=== PATIENT | female | born 1955 | race Caucasian/White ===

== ENCOUNTER 2016-10-29 15:13 | Emergency (ER) | payer MEDICARE ==
[~2016-10-29] VITALS: Ht 165.1 cm; Wt 70.3 kg
[~2016-10-29 15:13] MED LIST: ALPR1TAB2 PO; ATOR20TA58 PO; BUPR100T6 PO; BUPR150T8 PO; HYDR-2679 PO; LACT1CAP29 PO; METO25TA4 PO; OMEP20TA PO; SERT50TA PO
[2016-10-29] MEDS ORDERED: HYDR-971 PO (16:12)
[2016-10-29] MEDS ORDERED: MUPI1OIN NS (16:12)
[2016-10-29] MEDS ORDERED: SULF1TAB24 PO (16:12)
--- NOTE | 2016-10-29 16:15 | PHYS DOC ---
General Chief Complaint: FACE PAIN Stated Complaint: NOSE,MOUTH,pain Time Seen by MD: 16:09 Source: patient Exam Limitations: no limitations Problems: History of Present Illness Initial Comments Pt is 61/F to ED c/o facial pain. Pt states for the past three days she's had increasing facial pain, described as burning/throbbing at nose both external and internal, as well as upper lip. Minimal cough, no nasal discharge, no fever/chills/nuchal rigidity. Saw her PCP yesterday dx URI, placed on augmentin/flonase. Pt says her symptoms much worse today, came to ED for analgesic relief. +smoker no h/o MRSA. Timing/Duration: other (3 days) Severity: moderate Location: nose, mouth, facial Prearrival Treatment: over the counter meds, prescription meds Modifying Factors: improves with other Associated Symptoms: sinus infection, other Allergies: Coded Allergies: nitroglycerin (Verified Allergy, Severe, 08/17/15) SEVERE HYPOTENSION levofloxacin (Verified Allergy, Intermediate, 08/17/15) Psych. s/s Influenza Virus Vaccines (Verified Allergy, Unknown, 07/09/16) Past Medical History Medical History: other (angina, anxiety, ) Surgical History: other (appy, hysterectomy, tonsillectomy) Social History Smoker: cigarettes Alcohol: none Drugs: none Constitutional: denies chills, denies fever, denies malaise, denies weakness Eyes: denies blindness, denies blurred vision, denies drainage, denies foreign body sensation Ears: denies dizziness, denies pain, denies tinnitus Nose: see HPI Mouth: see HPI Throat: denies pain, denies swelling, denies neck stiffness Respiratory: denies cough, denies shortness of breath, denies wheezing Cardiovascular: denies chest pain, denies palpitations, denies syncope Gastrointestinal: denies abdominal pain, denies diarrhea, denies nausea, denies vomiting Skin: see HPI Neurological: denies headache, denies numbness, denies paresthesia Physical Exam General Appearance: WD/WN, mild distress Eyes: bilateral eye EOMI, bilateral eye PERRL, bilateral eye normal inspection Ears: bilateral ear TM normal, bilateral ear auricle normal, bilateral ear canal normal Nose: other (mild erythema external and internal, mucus membranes irritated appear friable no bleeding/exudate) Mouth/Throat: other (erythema TTP upper lip, no intraoral lesions or pharyngeal swelling) Neck: supple, trachea midline, lymphadenopathy (R), lymphadenopathy (L) Cardiovascular/Respiratory: normal peripheral pulses, normal breath sounds, no respiratory distress 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 VSS, I feel pt stable for outpt treatment she is agreeable. Advised to stop smoking. Departure Time of Disposition: 16:13 Disposition: 01 HOME, SELF-CARE Diagnosis: Cellulitis (likely MRSA), sinusitis Condition: GOOD Patient Instructions: MRSA Infection, Infant, [id number] Additional Instructions: Discontinue flonase and augmentin. OTC nasal saline spray to keep membranes moist. Rx: bactrim ds, bactroban ointment, norco 5mg #20 Take meds with food. Follow up with your doctor next week for recheck. Return to ED with new or changing symptoms. ELISHA NGUYEN DO Oct 29, 2016 16:15
[2016-10-29 16:20] VITALS: BP 140/65
[2016-10-29] MEDS ORDERED: FLUCONAZOLE 100 MG TABLET. PO ONE (16:30)
== END 2016-10-29 16:35 | disposition home or self-care (01) ==
LOC: ER 15:13
DX: J34.0 Abscess, furuncle and carbuncle of nose (principal); J32.9 Chronic sinusitis, unspecified; K13.0 Diseases of lips; F17.210 Nicotine dependence, cigarettes, uncomplicated; Z88.1 Allergy status to other antibiotic agents; Z88.7 Allergy status to serum and vaccine; Z88.8 Allergy status to other drugs, medicaments and biological substances
CPT/HCPCS: 36415; 87641; 99283

== ENCOUNTER 2016-10-30 19:00 | Emergency (ER) | payer MEDICARE ==
[~2016-10-30 19:00] MED LIST changes: +HYDR-971 PO; +MUPI1OIN NS; +SULF1TAB24 PO
--- NOTE | 2016-10-30 19:04 | ED.ADGEN ---
Past History Past Medical History: Angina, Anxiety, Hypertension Past Surgical History: Appendectomy, Hysterectomy, Tonsillectomy Alcohol Use: None Drug Use: None Adult General Chief Complaint Chief Complaint "... I got this facial cellulitis and seemed to start him on nose.... They said it's MRSA.... I was on some antibiotics , but the just changed me to Bactrim twice a day... But I'm still having some swelling and itching... I'm supposed to follow-up with Dr. Thomas... HPI HPI Patient is a 61 year old female who presents with above hx and complaints of facial cellulitis. Patient has area around naris and upper lip that is erythemic and swollen. No adenopathy appreciated. No history immunosuppression. No history of specific ill contacts. No history of travel. Patient has only been on Bactrim approximately 24 hours. Patient states the itching and facial tenderness is very bothersome. Review of Systems Review of Systems Constitutional: Denies fever or chills [] Eyes: Denies change in visual acuity, redness, or eye pain [] HENT: Denies nasal congestion or sore throat [] complaints of facial rash and tenderness Respiratory: Denies cough or shortness of breath [] Cardiovascular: No additional information not addressed in HPI [] GI: Denies abdominal pain, nausea, vomiting, bloody stools or diarrhea [] : Denies dysuria or hematuria [] Musculoskeletal: Denies back pain or joint pain [] Integument: Complaints of facial rash Neurologic: Denies headache, focal weakness or sensory changes [] Endocrine: Denies polyuria or polydipsia [] Family History Family History Noncontributory Current Medications Current Medications Current Medications Medications (Trade) Dose Ordered Sig/Emiliano Start Time Stop Time Status Last Admin Dose Admin Ceftriaxone Sodium (Rocephin Im) 1 gm 1X ONCE 10/30/16 20:00 10/30/16 20:01 DC 10/30/16 19:50 1 GM Prednisone (Prednisone) 60 mg 1X ONCE 10/30/16 20:00 10/30/16 20:01 DC 10/30/16 19:50 60 MG Allergies Allergies Allergies Coded Allergies Type Severity Reaction Last Updated Verified nitroglycerin Allergy Severe 08/17/15 Yes levofloxacin Allergy Intermediate 08/17/15 Yes Influenza Virus Vaccines Allergy Unknown 07/09/16 Yes Physical Exam Physical Exam Constitutional: Moderate distress, non-toxic appearance. [] HENT: Normocephalic, atraumatic, bilateral external ears normal, oropharynx moist, no oral exudates, nose injected the anterior nares bilaterally. Upper lip cellulitis Eyes: PERRLA, EOMI, conjunctiva normal, no discharge. [] Neck: Normal range of motion, no tenderness, supple, no stridor. [] Cardiovascular:Heart rate regular rhythm, no murmur [] Lungs & Thorax: Bilateral breath sounds equal at apexes on auscultation [] Abdomen: Bowel sounds normal, soft, no tenderness, no masses, no pulsatile masses. Old surgical scars Skin: Warm, dry, findings of erythema, facial cellulitis as per history of present illness Back: No tenderness, no CVA tenderness. [] Extremities: No tenderness, no cyanosis, no clubbing, ROM intact, no edema. [] Neurologic: Alert and oriented X 3, normal motor function, normal sensory function, no focal deficits noted. [] Psychologic: Affect normal, judgement normal, mood normal. [] Current Patient Data Vital Signs Vital Signs Date Time Temp Pulse Resp B/P Pulse Ox O2 Delivery O2 Flow Rate FiO2 10/30/16 19:05 98.0 100 20 97 Room Air EKG EKG [] Radiology/Procedures Radiology/Procedures [] Course & Med Decision Making Course & Med Decision Making Pertinent Labs and Imaging studies reviewed. (See chart for details). Patient use cool packs as needed. Patient to continue antibiotic ointment. Patient continue to take Bactrim DS twice a day. Patient return if any increase in symptoms. Patient to take Tylenol and ibuprofen as needed for discomfort. For marked discomfort patient take Vicoprofen up 4 times a day. She advised if no improvement may need admission and IV antibiotics. Patient must follow-up with Dr. Thomas. Patient use Benadryl 25-50 mg 4 times as needed a day for itching complaints. [] Final Impression Final Impression 1. Facial cellulitis [] Problems: Dragon Disclaimer Dragon Disclaimer This electronic medical record was generated, in whole or in part, using a voice recognition dictation system. LEEANN CROWLEY MD Oct 30, 2016 19:04
[2016-10-30 19:05] VITALS: BP 152/79
[2016-10-30] MEDS ORDERED: CEFTRIAXONE IM 1 GM VIAL. IM ONE (20:00)
[2016-10-30] MEDS ORDERED: PREDNISONE 20 MG TABLET PO ONE (20:00)
== END 2016-10-30 20:05 | disposition home or self-care (01) ==
LOC: ER 19:00
DX: L03.211 Cellulitis of face (principal); I10 Essential (primary) hypertension; Z88.7 Allergy status to serum and vaccine
CPT/HCPCS: 96372; 99283; J0696; J7512

== ENCOUNTER → 2016-11-05 | Outpatient (CLI) | payer MEDICARE, OTHER ==
[2016-10-30 19:05] VITALS: BP 152/79
[~2016-11-05] MED LIST changes: -OMEP20TA PO; +OMEP20TA8 PO
--- NOTE | 2016-11-05 11:28 | RAD ---
CT face without contrast History: Sinusitis in a separate days, facial swelling and redness. Technique: Noncontrast CT of the face with attention to the sinuses was performed. Axial, sagittal, and coronal reconstructions were obtained. One or more of the following individualized dose reduction techniques were utilized for the study: Automated exposure control Adjustment of mA and/or kV according to patient's size Use of iterative reconstruction technique. Findings: There is no evidence of acute facial fracture. Bilateral orbits and orbital contents appear intact. Bilateral frontal sinuses are clear. There is opacification of several posterior right ethmoid air cells. Sphenoid sinus is clear. Mild-moderate circumferential left maxillary sinus mucosal thickening is seen. There is opacification of left ostiomeatal unit. Inferior right maxillary sinus demonstrates minimal mucosal thickening. Right ostiomeatal unit is patent. No mucoperiosteal reaction is identified. No soft tissue swelling is seen in the visualized face. Impression: 1. Left greater than right maxillary sinus disease. Opacification of several right ethmoid air cells.
== END | disposition home or self-care (01) ==
LOC: CT 10:44
PROVIDERS: ATTEND Family Medicine
DX: J32.0 Chronic maxillary sinusitis (principal); R22.0 Localized swelling, mass and lump, head; J06.9 Acute upper respiratory infection, unspecified; R50.81 Fever presenting with conditions classified elsewhere; G50.1 Atypical facial pain; J01.11 Acute recurrent frontal sinusitis
CPT/HCPCS: 70486

== ENCOUNTER → 2016-12-14 | Outpatient (CLI) | payer OTHER ==
--- NOTE | 2016-12-14 11:44 | RAD ---
DATE: 12/14/2016 EXAM: DIGITAL SCREEN BILAT W/CAD HISTORY: Screening COMPARISON: 13 months earlier This study was interpreted with the benefit of Computerized Aided Detection (CAD). FINDINGS: Breast Density: SCATTERED The breast parenchyma shows scattered fibroglandular densities. Breast parenchyma level B. There has been little change compared to the previous exam IMPRESSION: Benign finding BI-RADS CATEGORY: 2 BENIGN FINDING(S) RECOMMENDED FOLLOW-UP: 12M 12 MONTH FOLLOW-UP PQRS compliance statement: Patient information was entered into a reminder system with a target due date 12/14/2017 for the next mammogram. Mammography is a sensitive method for finding small breast cancers, but it does not detect them all and is not a substitute for careful clinical examination. A negative mammogram does not negate a clinically suspicious finding and should not result in delay in biopsying a clinically suspicious abnormality. "Our facility is accredited by the [employer] Mammography Program."
== END | disposition home or self-care (01) ==
LOC: MAMMO 10:20
PROVIDERS: ATTEND Obstetrics & Gynecology
DX: Z12.31 Encounter for screening mammogram for malignant neoplasm of breast (principal); R92.8 Other abnormal and inconclusive findings on diagnostic imaging of breast
CPT/HCPCS: G0202; 77067

== ENCOUNTER → 2017-04-07 | Day surgery (SDC) | payer OTHER ==
[~2017-04-07] MED LIST changes: +AMOX1TAB61 PO; +IV RINGERS SOLUTION,LACTATED 1,000 ML IV ONE; +PROPOFOL 20 ML IV ONE
== END | disposition home or self-care (01) ==
LOC: SURG 07:31
PROVIDERS: ATTEND Internal Medicine Gastroenterology
DX: Z12.11 Encounter for screening for malignant neoplasm of colon (principal); K57.30 Diverticulosis of large intestine without perforation or abscess without bleeding; I25.10 Atherosclerotic heart disease of native coronary artery without angina pectoris; K21.9 Gastro-esophageal reflux disease without esophagitis; F32.9 Major depressive disorder, single episode, unspecified; Z98.51 Tubal ligation status; Z90.710 Acquired absence of both cervix and uterus
CPT/HCPCS: 45378; J2704; J7120

== ENCOUNTER 2017-04-12 18:46 | Emergency (ER) | payer OTHER ==
[~2017-04-12] VITALS: Ht 165.1 cm; Wt 64.2 kg
[~2017-04-12 18:46] MED LIST changes: -AMOX1TAB61 PO; -IV RINGERS SOLUTION,LACTATED 1,000 ML IV ONE; -PROPOFOL 20 ML IV ONE
--- NOTE | 2017-04-12 18:48 | PHYS DOC ---
Past History Past Medical History: Depression, Hypertension, Other Past Surgical History: Cholecystectomy Alcohol Use: None Drug Use: None Adult General Chief Complaint Chief Complaint: left lower quadrant pain HPI HPI Patient is a 62 year old female who presents with for quadrant pain. She states been going on for last 2 days. Is worse when she tries to walk. She is having nothing else makes the pain better or worse. She's had a normal bowel movement without any diarrhea or constipation. She denies any dysuria. She has had a colonoscopy recently last week secondary to recent weight loss. Review of Systems Review of Systems Constitutional: Denies fever or chills [] Eyes: Denies change in visual acuity, redness, or eye pain [] HENT: Denies nasal congestion or sore throat [] Respiratory: Denies cough or shortness of breath [] Cardiovascular: No additional information not addressed in HPI [] GI: Positive for abdominal pain, Denies nausea, vomiting, bloody stools or diarrhea [] : Denies dysuria or hematuria [] Musculoskeletal: Denies back pain or joint pain [] Integument: Denies rash or skin lesions [] Neurologic: Denies headache, focal weakness or sensory changes [] Endocrine: Denies polyuria or polydipsia [] Allergies Allergies Allergies Coded Allergies Type Severity Reaction Last Updated Verified nitroglycerin Allergy Severe 08/17/15 Yes levofloxacin Allergy Intermediate 08/17/15 Yes I S O L A T I O N *CONTACT* Allergy Unknown 11/01/16 Yes Influenza Virus Vaccines Allergy Unknown 07/09/16 Yes Physical Exam Physical Exam Constitutional: Well developed, well nourished, no acute distress, non-toxic appearance. [] HENT: Normocephalic, atraumatic, bilateral external ears normal, oropharynx moist, no oral exudates, nose normal. [] Eyes: PERRLA, EOMI, conjunctiva normal, no discharge. [] Neck: Normal range of motion, no tenderness, supple, no stridor. [] Cardiovascular:Heart rate regular rhythm, no murmur [] Lungs & Thorax: Bilateral breath sounds clear to auscultation [] Abdomen: Bowel sounds hypoactive, high-pitched, soft, mild tender palpation left lower quadrant no rebound or guarding, no masses, no pulsatile masses. [] Skin: Warm, dry, no erythema, no rash. [] Back: No tenderness, no CVA tenderness. [] Extremities: No tenderness, no cyanosis, no clubbing, ROM intact, no edema. [] Neurologic: Alert and oriented X 3, normal motor function, normal sensory function, no focal deficits noted. [] Psychologic: Affect normal, judgement normal, mood normal. [] EKG EKG [] Radiology/Procedures Radiology/Procedures [address] [address] IMAGING REPORT Signed PATIENT: CORINA MAR ACCOUNT: [id number] : 1955 LOCATION: ER AGE: 62 SEX: F EXAM STATUS: REG ER ORD. PHYSICIAN: LIV CHINO MD REASON: rlq pain PROCEDURE: CT ABD PEL W/ORAL CONTRST ONLY CT abdomen and pelvis without contrast: Reason for examination: Right lower quadrant abdominal pain with nausea for 2 days. History of cholecystectomy, hysterectomy and possible appendectomy. Recent colonoscopy one week ago. Comparison is made to previous study dated 12/13/2012. Helical images were obtained through the abdomen and pelvis with no intravenous contrast but oral contrast was given. Reconstruction was performed in sagittal and coronal planes. Exposure: One or more of the following individualized dose reduction techniques were utilized for this examination: 1. Automated exposure control 2. Adjustment of the mA and/or kV according to patient size 3. Use of iterative reconstruction technique. The lung bases show some linear atelectasis posteriorly in the costophrenic angles bilaterally. The heart size is normal with no pericardial effusion. No abnormality seen at the liver, pancreas, adrenal glands or spleen. The gallbladder surgically absent. The kidneys show no renal masses, renal calculi, hydronephrosis or evidence of obstructive uropathy. The abdominal aorta shows some mild arteriosclerotic vascular calcification. The appendix is not identified and is apparently surgically absent. There is no evidence of diverticulosis there is however some minimal inflammatory changes adjacent to the colon near the junction of the descending and sigmoid colon. This could reflect focal diverticulitis. The small intestinal tract is not distended or thickened. No bowel obstruction is seen. No abnormality seen at the bladder or vaginal cuff. No free fluid or free air is seen in the abdomen or pelvis. There are some degenerative changes in the spine but no acute bony abnormalities are seen. IMPRESSION: Some focal inflammatory changes noted in the mesentery near the junction of the descending and sigmoid colon which may reflect diverticulitis. No other acute abnormality seen in the abdomen and pelvis. Electronically signed by: Venita Newman MD (04/13/2017 12:35 AM) [facility] DICTATED AND SIGNED BY: VENITA NEWMAN MD DATE: 04/13/17 0023 CC: JAKY HERNANDEZ MD; LIV CHINO MD ~ Impressions: Abdominal pain Course & Med Decision Making Course & Med Decision Making Pertinent Labs and Imaging studies reviewed. (See chart for details) CT scans concerning for possible diverticulitis. Patient feels comfortable enough is tolerating by mouth to be treated as an outpatient. She does have an allergy to levofloxacin and she states makes her "crazy" therefore will use Augmentin for the next 7 days. Patient's follow-up with GI specialist. Return precautions given she is agreeable plan of being discharged in stable condition at this time. Dragon Disclaimer Dragon Disclaimer This chart was dictated in whole or in part using Voice Recognition software in a busy, high-work load, and often noisy Emergency Department environment. It may contain unintended and wholly unrecognized errors or omissions. Departure Departure: Impression: Primary Impression: Diverticulitis Disposition: 01 HOME, SELF-CARE Condition: STABLE Referrals: JAKY HERNANDEZ MD (PCP) GLENDY SOLORIO MD Patient Instructions: Diverticulitis Additional Instructions: The CAT scan shows you have an inflammation of your large intestine on the left side rear pain is. They suspect you have diverticulitis. You're feeling well up to be discharged home and continue antibiotics as an outpatient. He will need to take Augmentin 1 tablet twice a day for the next 7 days. You will need to follow-up with a GI physician. If you do not have a GI doctor who just performed your colonoscopy you can call Dr. Lama who is at [facility]. Return ER for severe pain, uncontrolled nausea vomiting, or other concerns. Scripts Amoxicillin/Potassium Clav (AUGMENTIN 875-125 TABLET) 1 Each Tablet 1 TAB PO BID, #14 TAB Prov: LIV CHINO MD 04/13/17 Problem Qualifiers Primary Impression: Diverticulitis Diverticulitis site: large intestine Diverticulitis bleeding: without bleeding Diverticulitis complication: without perforation or abscess Qualified Codes: K57.32 - Diverticulitis of large intestine without perforation or abscess without bleeding LIV CHINO MD Apr 12, 2017 18:48
[2017-04-12] MEDS ORDERED: IV NORMAL SALINE 1,000ML 1,000 ML IV SCH (19:13)
[2017-04-12] MEDS ORDERED: MORPHINE SULFATE 2 MG/ML DISP.SYRIN. IV/SQ PRN (19:15)
[2017-04-12] MEDS ORDERED: ONDANSETRON PF 4 MG/2 ML VIAL. IV ONE (19:30)
--- NOTE | 2017-04-12 19:31 | EKG ---
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
[2017-04-12 20:06] LABS: BILIRUBIN,URINE NEG (NEG); CLARITY,URINE CLEAR; COLOR,URINE YELLOW; GLUCOSE,URINE NEG (NEG); NITRITE,URINE NEG (NEG); UROBILINOGEN,URINE 0.2 mg/dL (0.2 mg/dL)
[2017-04-12 20:08] LABS: BACTERIA,URINE FEW /HPF (0-FEW); SQUAMOUS EPITHELIAL CELL,UR MANY /LPF
[2017-04-12 20:11] LABS: YEAST,URINE PRESENT /HPF
[2017-04-12] MEDS ORDERED: IOHEXOL 240 MG/ML 50ML VIAL. PO ONE (21:00)
[2017-04-12] MEDS ORDERED: CONTRAST GIVEN MC PRN (21:00)
[2017-04-12] MEDS ORDERED: IOHEXOL 300 MG/ML 75 ML VIAL. IV ONE (21:00)
[2017-04-12] MEDS ORDERED: LIDOCAINE 1% Multi-Dose 20 ML VIAL. ONE (21:45)
[2017-04-12 22:59] LABS: BASO # 0.1 x10^3/uL (0.0-0.2); BASO % 1 % (0-3); EOS # 0.2 x10^3/uL (0.0-0.7); EOS % 3 % (0-3); HEMATOCRIT 40.4 % (36.0-47.0); LYMPH # 3.1 x10^3/uL (1.0-4.8); LYMPH % 41 % (24-48); MEAN CORPUSCULAR HEMOGLOBIN 32 pg (25-35); MEAN CORPUSCULAR HGB CONC 35 g/dL (31-37); MEAN CORPUSCULAR VOLUME 92 fL (79-100); MONO # 0.6 x10^3/uL (0.0-1.1); MONO % 8 % (0-9); NEUT # 3.5 x10^3uL (1.8-7.7); NEUT % 47 % (31-73); PLATELET COUNT 278 x10^3/uL (140-400); RED BLOOD COUNT 4.39 x10^6/uL (3.50-5.40); RED CELL DISTRIBUTION WIDTH 13.6 % (11.5-14.5); WHITE BLOOD COUNT 7.6 x10^3/uL (4.0-11.0)
[2017-04-12 23:18] LABS: ALBUMIN 3.4 g/dL (3.4-5.0); CALCIUM 9.1 mg/dL (8.5-10.1); CREATININE 0.7 mg/dL (0.6-1.0); DIRECT BILIRUBIN 0.1 mg/dL (0.0-0.2); GFR 84.2; POTASSIUM 3.6 mmol/L (3.5-5.1); TOTAL BILIRUBIN 0.2 mg/dL (0.2-1.0); TOTAL PROTEIN 6.6 g/dL (6.4-8.2)
[2017-04-13 00:08] VITALS: BP 121/66
--- NOTE | 2017-04-13 00:38 | RAD ---
CT abdomen and pelvis without contrast: Reason for examination: Right lower quadrant abdominal pain with nausea for 2 days. History of cholecystectomy, hysterectomy and possible appendectomy. Recent colonoscopy one week ago. Comparison is made to previous study dated 12/13/2012. Helical images were obtained through the abdomen and pelvis with no intravenous contrast but oral contrast was given. Reconstruction was performed in sagittal and coronal planes. Exposure: One or more of the following individualized dose reduction techniques were utilized for this examination: 1. Automated exposure control 2. Adjustment of the mA and/or kV according to patient size 3. Use of iterative reconstruction technique. The lung bases show some linear atelectasis posteriorly in the costophrenic angles bilaterally. The heart size is normal with no pericardial effusion. No abnormality seen at the liver, pancreas, adrenal glands or spleen. The gallbladder surgically absent. The kidneys show no renal masses, renal calculi, hydronephrosis or evidence of obstructive uropathy. The abdominal aorta shows some mild arteriosclerotic vascular calcification. The appendix is not identified and is apparently surgically absent. There is no evidence of diverticulosis there is however some minimal inflammatory changes adjacent to the colon near the junction of the descending and sigmoid colon. This could reflect focal diverticulitis. The small intestinal tract is not distended or thickened. No bowel obstruction is seen. No abnormality seen at the bladder or vaginal cuff. No free fluid or free air is seen in the abdomen or pelvis. There are some degenerative changes in the spine but no acute bony abnormalities are seen. IMPRESSION: Some focal inflammatory changes noted in the mesentery near the junction of the descending and sigmoid colon which may reflect diverticulitis. No other acute abnormality seen in the abdomen and pelvis. Electronically signed by: Venita Valdez MD (04/13/2017 12:35 AM) [facility]
[2017-04-13] MEDS ORDERED: AMOX1TAB61 PO (00:57)
[2017-04-13] MEDS ORDERED: AMOXICILLIN/K CLAV 875/125MG TABLET. PO ONE (01:30)
== END 2017-04-13 01:02 | disposition home or self-care (01) ==
LOC: ER 18:46
DX: K57.32 Diverticulitis of large intestine without perforation or abscess without bleeding (principal); I10 Essential (primary) hypertension; Z90.49 Acquired absence of other specified parts of digestive tract; Z88.7 Allergy status to serum and vaccine; Z88.1 Allergy status to other antibiotic agents; Z91.041 Radiographic dye allergy status; Z88.8 Allergy status to other drugs, medicaments and biological substances
CPT/HCPCS: 36415; 74176; 80048; 80076; 81001; 82553; 83690; 84484; 85025; 85610; 93005; 99285; Q9966; Q9967

== ENCOUNTER → 2017-05-02 | Outpatient (CLI) | payer OTHER ==
[2017-04-13 00:08] VITALS: BP 121/66
[~2017-05-02] MED LIST changes: +AMOX1TAB61 PO
--- NOTE | 2017-05-02 16:14 | RAD ---
INDICATION:RT UPPER ARM LUMP COMPARISON: None. FINDINGS: Focused ultrasound images were obtained of the upper right arm laterally at the region of concern for lump. The patient's subcutaneous fatty tissue as well as musculature is seen without a definite drainable fluid collection or well-defined mass at this time IMPRESSION: No definite drainable fluid collection or well-defined mass is seen at this time.
== END | disposition home or self-care (01) ==
LOC: US 14:33
PROVIDERS: ATTEND Nurse Practitioner Adult Health
DX: R22.31 Localized swelling, mass and lump, right upper limb (principal); K57.32 Diverticulitis of large intestine without perforation or abscess without bleeding
CPT/HCPCS: 76881

== ENCOUNTER → 2017-06-22 | Outpatient (CLI) | payer OTHER ==
--- NOTE | 2017-06-22 10:42 | RAD ---
CT of the chest without contrast, 06/22/2017: History: Smoking history, weight loss Noncontrast scans were obtained as requested. There is calcific plaquing of the thoracic aorta without evidence of aneurysm. No mediastinal adenopathy is evident. The heart size is normal. There are a few scattered linear parenchymal opacities, particularly in the lung bases, compatible with scars. There is mild pleural scarring over the pulmonary apices. There is a tiny 3 mm noncalcified subpleural nodule in the posterior aspect of the left lower lobe as seen on image 210 of series #5. There is a tiny calcified pulmonary granuloma in the posterior costophrenic angle on the right. No pulmonary consolidation is seen. There is no evidence of pleural fluid. There are mild scattered degenerative changes in the spine. IMPRESSION: 1. Mild bilateral pleural/parenchymal scarring. 2. Small right lower lobe calcified granuloma. 3. Tiny left lower lobe noncalcified pulmonary nodule which may be a granuloma or scar. A neoplastic etiology cannot be excluded. CT follow-up in 12 months is suggested. PQRS Compliance Statement: One or more of the following individualized dose reduction techniques were utilized for this examination: 1. Automated exposure control 2. Adjustment of the mA and/or kV according to patient size 3. Use of iterative reconstruction technique
== END | disposition home or self-care (01) ==
LOC: CT 09:35
PROVIDERS: ATTEND Nurse Practitioner Family
DX: J98.4 Other disorders of lung (principal); R91.8 Other nonspecific abnormal finding of lung field; R91.1 Solitary pulmonary nodule; Z87.891 Personal history of nicotine dependence; M47.894 Other spondylosis, thoracic region
CPT/HCPCS: 71250

== ENCOUNTER 2017-08-07 09:34 | Emergency (ER) | payer BC, OTHER ==
[~2017-08-07] VITALS: Ht 165.1 cm; Wt 64.2 kg
--- NOTE | 2017-08-07 11:00 | PHYS DOC ---
Past History Past Medical History: Depression, Hypertension, Kidney Stones, UTI, Other Past Surgical History: Cholecystectomy, Hysterectomy, Other Smoking: Cigarettes Alcohol Use: None Drug Use: None Adult General Chief Complaint Chief Complaint: FOREIGNBODY EAR HPI HPI 62-year-old female patient states he tried to clean her left ear 10 days ago and the cotton part of Q-tip stuck in her ear with decrease of hearing in her left ear. Patient states she tried to clean her right ear today and the cotton part of Q-tip remained in her ear with decrease of hearing. Patient denies other symptoms. Review of Systems Review of Systems Constitutional: Denies fever or chills [] Eyes: Denies change in visual acuity, redness, or eye pain [] HENT: Denies nasal congestion or sore throat , reports change of hearing Respiratory: Denies cough or shortness of breath [] Cardiovascular: No additional information not addressed in HPI [] GI: Denies abdominal pain, nausea, vomiting, bloody stools or diarrhea [] : Denies dysuria or hematuria [] Musculoskeletal: Denies back pain or joint pain [] Integument: Denies rash or skin lesions [] Neurologic: Denies headache, focal weakness or sensory changes [] Endocrine: Denies polyuria or polydipsia [] All other systems were reviewed and found to be within normal limits, except as documented in this note. Allergies Allergies Allergies Coded Allergies Type Severity Reaction Last Updated Verified nitroglycerin Allergy Severe 08/17/15 Yes levofloxacin Allergy Intermediate 08/17/15 Yes I S O L A T I O N *CONTACT* Allergy Unknown 11/01/16 Yes Influenza Virus Vaccines Allergy Unknown 07/09/16 Yes Physical Exam Physical Exam Constitutional: Well developed, well nourished, mild distress, non-toxic appearance, anxious. [] HENT: Normocephalic, atraumatic, bilateral external ears normal, no foreign body was seen, oropharynx moist, no oral exudates, nose normal. [] Eyes: PERRLA, EOMI, conjunctiva normal, no discharge. [] Neck: Normal range of motion, no tenderness, supple, no stridor. [] Cardiovascular:Heart rate regular rhythm, no murmur [] Lungs & Thorax: Bilateral breath sounds clear to auscultation [] Neurologic: Alert and oriented X 3, normal motor function, normal sensory function, no focal deficits noted. [] Current Patient Data Vital Signs Vital Signs Date Time Temp Pulse Resp B/P (MAP) Pulse Ox O2 Delivery O2 Flow Rate FiO2 08/07/17 09:34 98.1 78 98 Room Air EKG EKG [] Radiology/Procedures Radiology/Procedures [] Course & Med Decision Making Course & Med Decision Making Evaluation of patient in ER showed 62-year-old male patient with possible foreign body in bilateral ears. Patient had unremarkable physical exam. Patient felt better after ear irrigation by DYE AUTOMATION OPERATOR without finding foreign body. Psychiatric to use Q-tip in her ears and quit smoking. Dragon Disclaimer Dragon Disclaimer This electronic medical record was generated, in whole or in part, using a voice recognition dictation system. Departure Departure: Impression: Primary Impression: Ear ache Additional Impressions: Feared condition not demonstrated Tobacco abuse Tobacco abuse counseling Disposition: HOME, SELF-CARE (At 1059) Condition: IMPROVED Referrals: JAKY HERNANDEZ MD (PCP) Patient Instructions: Ear Foreign Body, Smoking Cessation Additional Instructions: Do not use Q-tips in your ear Follow-up with your primary care physician in 5-7 days Return to ER if not getting better Problem Qualifiers LOLA JOSHUA MD Aug 07, 2017 11:00
[2017-08-07 11:20] VITALS: BP 134/55
== END 2017-08-07 11:20 | disposition home or self-care (01) ==
LOC: ER 09:34
DX: H92.01 Otalgia, right ear (principal); Z71.1 Person with feared health complaint in whom no diagnosis is made; F17.210 Nicotine dependence, cigarettes, uncomplicated; I10 Essential (primary) hypertension; Z87.442 Personal history of urinary calculi; Z87.440 Personal history of urinary (tract) infections; Z71.6 Tobacco abuse counseling; Z88.8 Allergy status to other drugs, medicaments and biological substances; Z88.1 Allergy status to other antibiotic agents; Z88.7 Allergy status to serum and vaccine; Z91.041 Radiographic dye allergy status
CPT/HCPCS: 99282

== ENCOUNTER 2017-12-21 16:23 | Emergency (ER) | payer BC ==
[~2017-12-21] VITALS: Ht 167.6 cm; Wt 61.2 kg
[2017-12-21 16:23] VITALS: BP 125/58
--- NOTE | 2017-12-21 17:39 | ED.ADGEN ---
Past History Past Medical History: Depression, Hypertension, Kidney Stones, UTI, Other Past Surgical History: Cholecystectomy, Hysterectomy, Tubal ligation, Other Smoking: Cigarettes Alcohol Use: None Drug Use: None Adult General Chief Complaint Chief Complaint Abdominal distention, constipation HPI HPI Patient is a 62-year-old female with history of intussusception 9 years ago presents with abdominal distention, moderate cramping abdominal pain and nausea. Patient states she has been unable to have a bowel movement or passed gas for the past 5 days by taking numerous cathartics including magnesium citrate. No vomiting fever chills, sweats. No urinary frequency urgency. No other acute symptoms or complaints. Previous cholecystectomy,. [] Review of Systems Review of Systems Review symptoms as per history of present illness. All other review symptoms are negative. All other systems were reviewed and found to be within normal limits, except as documented in this note. Allergies Allergies Allergies Coded Allergies Type Severity Reaction Last Updated Verified nitroglycerin Allergy Severe 08/17/15 Yes levofloxacin Allergy Intermediate 08/17/15 Yes I S O L A T I O N *CONTACT* Allergy Unknown 11/01/16 Yes Influenza Virus Vaccines Allergy Unknown 07/09/16 Yes Physical Exam Physical Exam Constitutional: Well developed, well nourished, no acute distress sitting upright in bed.[] HENT: Normocephalic, atraumatic, bilateral external ears normal, oropharynx moist, no oral exudates, nose normal. [] Eyes: PERRLA, EOMI, conjunctiva normal, no discharge. [] Neck: Normal range of motion, no tenderness. [] Cardiovascular:Heart rate regular rhythm, no murmur [] Lungs & Thorax: Bilateral breath sounds clear to auscultation [] Abdomen: Bowel sounds normal, soft, moderate distention increased bowel sounds.. [] Skin: Warm, dry, no erythema, no rash. [] Back: No tenderness, no CVA tenderness. [] Extremities: No tenderness, no cyanosis, no clubbing, ROM intact, no edema. [] Neurologic: Alert and oriented X 3, normal motor function, normal sensory function, no focal deficits noted. [] Psychologic: Affect normal, judgement normal, mood normal. [] Current Patient Data Vital Signs Vital Signs Date Time Temp Pulse Resp B/P (MAP) Pulse Ox O2 Delivery O2 Flow Rate FiO2 6/13/18 16:23 98.4 63 18 96 Room Air EKG EKG [] Radiology/Procedures Radiology/Procedures [] Course & Med Decision Making Course & Med Decision Making Pertinent Labs and Imaging studies reviewed. (See chart for details) [Abdominal distention with history of intussusception. Concern for possible bowel obstruction, ileus versus unknown pathology. Work and imaging ordered. Care endorsed to oncoming ERP at 1800.] Final Impression Final Impression [] Dragon Disclaimer Dragon Disclaimer This electronic medical record was generated, in whole or in part, using a voice recognition dictation system. YONG ZAPATA DO Dec 21, 2017 17:39
[2017-12-21 18:16] LABS: BILIRUBIN,URINE NEG (NEG); CLARITY,URINE HAZY; COLOR,URINE YELLOW; GLUCOSE,URINE NEG (NEG)
[2017-12-21 18:17] LABS: BACTERIA,URINE FEW /HPF (0-FEW); NITRITE,URINE NEG (NEG); SQUAMOUS EPITHELIAL CELL,UR MOD /LPF; UROBILINOGEN,URINE 0.2 mg/dL (0.2 mg/dL)
[2017-12-21] MEDS ORDERED: ONDANSETRON ODT 4 MG TAB.RAPDIS ONE (19:07)
[2017-12-21 19:32] LABS: BASO # 0.1 x10^3/uL (0.0-0.2); BASO % 1 % (0-3); EOS # 0.2 x10^3/uL (0.0-0.7); EOS % 2 % (0-3); HEMATOCRIT 40.9 % (36.0-47.0); LYMPH # 2.8 x10^3/uL (1.0-4.8); LYMPH % 31 % (24-48); MEAN CORPUSCULAR HEMOGLOBIN 32 pg (25-35); MEAN CORPUSCULAR HGB CONC 34 g/dL (31-37); MEAN CORPUSCULAR VOLUME 92 fL (79-100); MONO # 0.6 x10^3/uL (0.0-1.1); MONO % 6 % (0-9); NEUT # 5.3 x10^3uL (1.8-7.7); NEUT % 59 % (31-73); PLATELET COUNT 334 x10^3/uL (140-400); RED BLOOD COUNT 4.44 x10^6/uL (3.50-5.40); RED CELL DISTRIBUTION WIDTH 13.7 % (11.5-14.5)
[2017-12-21 19:52] LABS: ALBUMIN 3.6 g/dL (3.4-5.0); ALBUMIN/GLOBULIN RATIO 1.1 (1.0-1.7); CALCIUM 8.8 mg/dL (8.5-10.1); CREATININE 0.8 mg/dL (0.6-1.0); GFR 72.2; POTASSIUM 4.4 mmol/L (3.5-5.1); TOTAL BILIRUBIN 0.3 mg/dL (0.2-1.0); TOTAL PROTEIN 6.8 g/dL (6.4-8.2)
--- NOTE | 2017-12-22 07:55 | RAD ---
Acute abdominal series with single view chest 12/21/2017 5:20 PM INDICATION: Constipation COMPARISON: CT chest June 22, 2017 TECHNIQUE: Frontal view of the chest is provided. Upright and supine views of abdomen are provided. FINDINGS: The cardiomediastinal silhouette is within normal limits. There are no pleural effusions. There is no pulmonary vascular congestion. There is no pneumothorax. The lungs are clear. There is mild pulmonary emphysema. 3 level anterior cervical discectomy and fusion hardware is partially profiled within the lower cervical spine. Cholecystectomy clips are identified in the right upper quadrant. There is no free intraperitoneal air. There are no dilated loops of small or large bowel. No suspicious calcifications are identified. Suture material is identified in the right lower pelvis. Phleboliths are identified in the pelvis. IMPRESSION: No acute cardiopulmonary process. Nonobstructive bowel gas pattern. Small amount of fecal contents noted throughout the colon. Electronically signed by: Patricia Brock MD (12/22/2017 7:52 AM) [facility]
== END 2017-12-21 20:28 | disposition home or self-care (01) ==
LOC: ER 16:23
DX: K56.7 Ileus, unspecified (principal); I10 Essential (primary) hypertension; F17.210 Nicotine dependence, cigarettes, uncomplicated; Z87.442 Personal history of urinary calculi; Z87.440 Personal history of urinary (tract) infections; Z90.49 Acquired absence of other specified parts of digestive tract; Z90.710 Acquired absence of both cervix and uterus; Z98.51 Tubal ligation status; Z88.7 Allergy status to serum and vaccine; Z88.8 Allergy status to other drugs, medicaments and biological substances; Z88.1 Allergy status to other antibiotic agents; Z91.041 Radiographic dye allergy status
CPT/HCPCS: 36415; 74022; 80053; 81001; 83690; 85025; 87086; 99285-25

== ENCOUNTER → 2018-09-12 | Outpatient (CLI) | payer MEDICARE, BC ==
[~2018-09-12] MED LIST changes: +BUPR150T11 PO; +HYDR-3165 PO; -HYDR-971 PO; +HYDR25TA PO; +OXYB5TAB7 PO
--- NOTE | 2018-09-12 17:33 | RAD ---
Examination: RENAL COMPLETE BILATERAL History: Microscopic hematuria Comparison/Correlation: None Findings: Bilateral renal ultrasound exam was performed. Right kidney measures 10.18 x 5.5 cm x 5.9 cm. Left kidney measures 9.9 cm x 5.2 cm x 5 cm. No hydronephrosis. Renal cortical echotexture and contours are normal. No hydronephrosis. Mild renal cortical thinning bilaterally noted. Bilateral ureteral jets identified within the urinary bladder. Prevoid volume is 442 cc and postvoid volume is 56 cc. No renal or urinary bladder calculi. Impression: Small to moderate postvoid urinary bladder residual. No hydronephrosis. No evidence of renal mass. Further evaluation with CT urography exam if able or MRI should be considered for more complete assessment. Electronically signed by: Jc Zavala MD (09/12/2018 5:30 PM) [id number]
== END | disposition home or self-care (01) ==
LOC: US 12:38
PROVIDERS: ATTEND Nurse Practitioner Family
DX: R39.81 Functional urinary incontinence (principal); R31.29 Other microscopic hematuria
CPT/HCPCS: 76770

== ENCOUNTER → 2018-09-19 | Outpatient (CLI) | payer MEDICARE, BC ==
--- NOTE | 2018-09-19 11:01 | RAD ---
CT HEAD WO CONTRAST dated 09/19/2018 9:41 AM. Comparison: None. Clinical Indication: Confusion, memory loss. Technical factors: Contiguous 5 mm axial images of the head were obtained from the skull base to the vertex. No contrast was administered. One or more of the following individualized dose reduction techniques were utilized for this examination: Automated exposure control, Adjustment of the mA and/or kV according to patient size, Use of iterative reconstruction technique. Findings: Ventricles and sulci are within normal limits for age. No evidence of ventricular shift or mass effect. Brain parenchyma is of normal attenuation. There is no evidence of hemorrhage or extra-axial collection. Minimal mucosal thickening bilateral ethmoid air cells. Visualized paranasal sinuses and mastoid air cells are otherwise clear. Impression: 1. No evidence of acute intracranial abnormality. 2. Mild sinus disease. Electronically signed by: Jung Healy MD (09/19/2018 10:58 AM) [id number]
== END | disposition home or self-care (01) ==
LOC: CT 09:03
PROVIDERS: ATTEND Psychiatry & Neurology Neurology
DX: J32.9 Chronic sinusitis, unspecified (principal)
CPT/HCPCS: 70450

== ENCOUNTER 2018-10-27 13:14 | Inpatient (IN) | payer MEDICARE, BC ==
[~2018-10-27] VITALS: Ht 167.6 cm; Wt 61.2 kg
[~2018-10-27 13:14] MED LIST changes: -BUPR150T11 PO; -HYDR25TA PO; -OXYB5TAB7 PO
[2018-10-27 13:44] VITALS: BP 135/60
[2018-10-27] MEDS ORDERED: OXYB5TAB7 PO (14:26)
[2018-10-27] MEDS ORDERED: BUPR150T11 PO (14:26)
[2018-10-27] MEDS ORDERED: HYDR25TA PO (14:26)
[2018-10-27] MEDS ORDERED: hydrOXYzine HCL 25 MG TABLET PO PRN ×2 (14:30)
[2018-10-27 14:35] LABS: BASO # 0.1 x10^3/uL (0.0-0.2); BASO % 1 % (0-3); EOS % 1 % (0-3); HEMATOCRIT 42.1 % (36.0-47.0); HEMOGLOBIN 14.4 g/dL (12.0-15.5); LYMPH # 1.7 x10^3/uL (1.0-4.8); LYMPH % 24 % (24-48); MEAN CORPUSCULAR HEMOGLOBIN 31 pg (25-35); MEAN CORPUSCULAR HGB CONC 34 g/dL (31-37); MEAN CORPUSCULAR VOLUME 90 fL (79-100); MONO # 0.5 x10^3/uL (0.0-1.1); MONO % 6 % (0-9); NEUT # 4.9 x10^3uL (1.8-7.7); NEUT % 68 % (31-73); PLATELET COUNT 319 x10^3/uL (140-400); RED BLOOD COUNT 4.68 x10^6/uL (3.50-5.40); RED CELL DISTRIBUTION WIDTH 13.6 % (11.5-14.5); WHITE BLOOD COUNT 7.2 x10^3/uL (4.0-11.0)
[2018-10-27 14:45] LABS: ALBUMIN 3.6 g/dL (3.4-5.0); ALBUMIN/GLOBULIN RATIO 1.1 (1.0-1.7); CALCIUM 9.1 mg/dL (8.5-10.1); CREATININE 0.8 mg/dL (0.6-1.0); POTASSIUM 3.8 mmol/L (3.5-5.1); TOTAL BILIRUBIN 0.2 mg/dL (0.2-1.0)
[2018-10-27 15:12] VITALS: BP 135/68
[2018-10-27 17:05] VITALS: BP 135/74
[2018-10-27] MEDS ORDERED: OXYBUTYNIN CHLORIDE 5 MG TABLET PO SCH (21:00)
[2018-10-27] MEDS ORDERED: METOPROLOL TART IMMED RELEASE 25 MG TABLET PO SCH (21:00)
[2018-10-28] MEDS ORDERED: buPROPion XL 150 MG TAB.ER.24H PO SCH (09:00)
[2018-10-28] MEDS ORDERED: BUPROPION HCL PO SCH (09:00)
[2018-10-28] MEDS ORDERED: SERTRALINE 50 MG TABLET. PO SCH (09:00)
--- NOTE | 2018-10-28 09:31 | EKG ---
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
== END 2018-10-27 18:17 | disposition home or self-care (01) | DRG 313 ==
LOC: ICU 13:14
PROVIDERS: ADMIT Family Medicine; ATTEND Family Medicine
DX: R07.89 Other chest pain (principal); I25.10 Atherosclerotic heart disease of native coronary artery without angina pectoris; F17.210 Nicotine dependence, cigarettes, uncomplicated; K21.9 Gastro-esophageal reflux disease without esophagitis; F32.9 Major depressive disorder, single episode, unspecified; F41.9 Anxiety disorder, unspecified; Z90.710 Acquired absence of both cervix and uterus; Z90.49 Acquired absence of other specified parts of digestive tract; Z89.429 Acquired absence of other toe(s), unspecified side; Z98.51 Tubal ligation status; Z88.8 Allergy status to other drugs, medicaments and biological substances; Z79.899 Other long term (current) drug therapy
CPT/HCPCS: 36415; 80053; 82550; 83735; 84484; 85025; 85379; 87641; 93005

== ENCOUNTER 2019-04-16 16:56 | Observation (INO) | payer MEDICARE, BC ==
[~2019-04-16] VITALS: Ht 167.6 cm; Wt 68.9 kg
[~2019-04-16 16:56] MED LIST changes: +BUPR150T11 PO; +HYDR25TA PO; +OXYB5TAB10 PO
[2019-04-16] MEDS ORDERED: METO25TA4 PO (17:39)
[2019-04-16 17:49] LABS: BASO # 0.1 x10^3/uL (0.0-0.2); BASO % 1 % (0-3); EOS # 0.2 x10^3/uL (0.0-0.7); EOS % 3 % (0-3); HEMOGLOBIN 14.5 g/dL (12.0-15.5); LYMPH # 2.9 x10^3/uL (1.0-4.8); LYMPH % 44 % (24-48); MEAN CORPUSCULAR HEMOGLOBIN 31 pg (25-35); MEAN CORPUSCULAR HGB CONC 34 g/dL (31-37); MEAN CORPUSCULAR VOLUME 92 fL (79-100); MONO # 0.5 x10^3/uL (0.0-1.1); MONO % 8 % (0-9); NEUT # 2.8 x10^3uL (1.8-7.7); NEUT % 44 % (31-73); PLATELET COUNT 330 x10^3/uL (140-400); RED BLOOD COUNT 4.66 x10^6/uL (3.50-5.40); RED CELL DISTRIBUTION WIDTH 13.1 % (11.5-14.5); WHITE BLOOD COUNT 6.5 x10^3/uL (4.0-11.0)
[2019-04-16 17:53] VITALS: BP 133/59
--- NOTE | 2019-04-16 17:56 | EKG ---
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
[2019-04-16 18:08] LABS: ALBUMIN 3.7 g/dL (3.4-5.0); ALBUMIN/GLOBULIN RATIO 1.1 (1.0-1.7); CALCIUM 9.1 mg/dL (8.5-10.1); CREATININE 0.9 mg/dL (0.6-1.0); GFR 62.6; POTASSIUM 3.9 mmol/L (3.5-5.1); TOTAL BILIRUBIN 0.4 mg/dL (0.2-1.0); TOTAL PROTEIN 7.2 g/dL (6.4-8.2)
[2019-04-16 19:00] VITALS: BP 110/49
[2019-04-16 20:00] VITALS: BP 114/47
[2019-04-16] MEDS: OXYBUTYNIN CHLORIDE 5 MG TABLET PO SCH (20:56)
[2019-04-16] MEDS: METOPROLOL TART IMMED RELEASE 25 MG TABLET PO SCH (20:57)
[2019-04-16 21:00] VITALS: BP 114/44
[2019-04-16 22:00] VITALS: BP 109/49
[2019-04-16 22:32] LABS: CLARITY,URINE CLEAR; COLOR,URINE STRAW
[2019-04-16 22:33] LABS: BACTERIA,URINE FEW /HPF (0-FEW); BILIRUBIN,URINE NEG (NEG); GLUCOSE,URINE NEG (NEG); NITRITE,URINE NEG (NEG); SQUAMOUS EPITHELIAL CELL,UR FEW /LPF; UROBILINOGEN,URINE 0.2 mg/dL (0.2 mg/dL); WBC,URINE OCC /HPF (0-4)
[2019-04-16 23:00] VITALS: BP 109/49
[2019-04-17] VITALS (10 sets, daily range): BP systolic 98–125; BP diastolic 42–72
[2019-04-17 06:29] LABS: ALBUMIN 3.5 g/dL (3.4-5.0); ALBUMIN/GLOBULIN RATIO 1.1 (1.0-1.7); CREATININE 0.8 mg/dL (0.6-1.0); GFR 71.8; MAGNESIUM 2.1 mg/dL (1.8-2.4); POTASSIUM 4.1 mmol/L (3.5-5.1); TOTAL BILIRUBIN 0.5 mg/dL (0.2-1.0); TOTAL PROTEIN 6.7 g/dL (6.4-8.2)
--- NOTE | 2019-04-17 07:53 | RAD ---
Chest radiograph 04/17/2019 5:00 AM INDICATION: Chest pain COMPARISON: CT chest 06/22/2017 TECHNIQUE: Frontal and lateral views of the chest are provided. FINDINGS: The cardiomediastinal silhouette is within normal limits. There are no pleural effusions. There is no pulmonary vascular congestion. There is no pneumothorax. Patchy opacity is noted at the left lung base which may represent subsegmental atelectasis versus developing infiltrate. No significant osseous abnormality is identified. IMPRESSION: Patchy opacity at the left lung base may represent subsegmental atelectasis versus developing infiltrate. Electronically signed by: Patricia Brock MD (04/17/2019 7:50 AM) [facility]
[2019-04-17] MEDS: METOPROLOL TART IMMED RELEASE 25 MG TABLET PO SCH (08:02)
[2019-04-17] MEDS: OXYBUTYNIN CHLORIDE 5 MG TABLET PO SCH (08:02)
[2019-04-17] MEDS ORDERED: SERTRALINE 50 MG TABLET. PO SCH (09:00)
[2019-04-17] MEDS ORDERED: buPROPion SR 150 MG TABLET.SA PO SCH (09:00)
--- NOTE | 2019-04-17 19:28 | DS ---
DATE OF DISCHARGE: 04/17/2019 HOSPITAL COURSE: A 64-year-old female admitted with substernal chest pain. The patient notes it was radiating to her back. Otherwise, she was mildly short of breath. The patient was admitted to the hospital for further evaluation and treatment. Her workup was basically unremarkable. Blood pressure was that of 110/70, respiratory rate 18, pulse 64, afebrile. The patient's cardiac enzymes repeat were all negative. Sodium and potassium 140 and 4.1, blood sugar was stable, BUN and creatinine 8 and 0.8, albumin was unremarkable. CBC was perfectly normal. Electrocardiogram was unremarkable. The patient was admitted for further evaluation, but cleared. She will follow up with her commission associate as an outpatient and make further evaluation. IMPRESSION: Chest pain, possible angina. Continue to monitor the patient as an outpatient and make further evaluation with her commission associate. JAKY HERNANDEZ MD DR: ATIYA/cristiana JOB#: [id number] / [id number]
== END 2019-04-17 09:38 | disposition home or self-care (01) ==
LOC: INTOOBSV 16:56 → ICU 16:56
PROVIDERS: ADMIT Family Medicine; ATTEND Family Medicine
DX: R07.2 Precordial pain (principal); F17.210 Nicotine dependence, cigarettes, uncomplicated; I25.10 Atherosclerotic heart disease of native coronary artery without angina pectoris; F32.9 Major depressive disorder, single episode, unspecified; K21.9 Gastro-esophageal reflux disease without esophagitis; F41.9 Anxiety disorder, unspecified; Z90.710 Acquired absence of both cervix and uterus; C76.40 Malignant neoplasm of unspecified upper limb; Z89.429 Acquired absence of other toe(s), unspecified side; Z98.890 Other specified postprocedural states; R11.0 Nausea; M54.89 Other dorsalgia; R42 Dizziness and giddiness; Z72.0 Tobacco use
CPT/HCPCS: 36415; 71046; 80053; 80061; 81001; 82550; 83735; 83880; 84484; 85025; 85379; 93005; G0378; G0379

== ENCOUNTER → 2019-10-05 | Outpatient (CLI) | payer MEDICARE, BC ==
[2019-04-17 08:02] VITALS: BP 111/72
--- NOTE | 2019-10-05 13:14 | RAD ---
Examination: SCAPULA LEFT History: Left posterior scapular pain. Comparison/Correlation: None Findings: 2 view image of the left scapula was obtained. Joint spaces are unremarkable. No fracture or bone destruction. Soft tissues are unremarkable. Impression: No acute process. Electronically signed by: Jc Zavala MD (10/05/2019 1:11 PM) [id number]
== END ==
LOC: DXRAD 12:32
PROVIDERS: ATTEND Family Medicine
DX: M54.9 Dorsalgia, unspecified (principal)
CPT/HCPCS: 73010

== ENCOUNTER → 2020-03-21 | Outpatient (CLI) | payer MEDICARE, BC ==
[2019-04-17 08:02] VITALS: BP 111/72
== END | disposition home or self-care (01) ==
LOC: LAB 08:35
PROVIDERS: ATTEND Registered Nurse
DX: Z20.828 Contact with and (suspected) exposure to other viral communicable diseases (principal)
CPT/HCPCS: U0003-CS

== ENCOUNTER → 2020-03-25 | Day surgery (SDC) | payer MEDICARE, BC ==
[~2020-03-25] MED LIST changes: +IPRATRPIUM/ALBUTEROL 0.5/2.5MG 3 ML NEBU. NEB PRN; +IV RINGERS SOLUTION,LACTATED 1,000 ML IV SCH; +MIDAZOLAM HCL PF 2 MG/2 ML VIAL. IV ONE; +ONDANSETRON PF 4 MG/2 ML VIAL. IV PRN; +PROPOFOL 10,000 MCG/ML (20ML) VIAL IV ONE
[2020-03-25 11:28] VITALS: BP 109/78
--- NOTE | 2020-03-25 11:48 | NUR ---
Upon transport to car IV site began to ooze, patient placed tissue at site and applied pressure. I recommended we come back in to get new bandage and make sure the bleeding stopped. Patient insisted upon leaving. Was holding wrist higher than heart and applying pressure to IV site.
--- NOTE | 2020-03-26 16:07 | PATHOLOGY ---
[facility] Accession Number: [id number] . 01 Material submitted: . stomach - GASTRITIS BX . 01 Clinical history: . R/O H PYLORI . 02 Diagnosis: Gastric biopsies: - Congestion and slight chronic inflammation. ([facility] 03/26/2020) [facility] 03/26/2020 0913 Local . 02 Comment: Sections of the gastric biopsy reveal segments of gastric antral mucosa showing congestion and slight chronic inflammation with scattered admixed eosinophils. A properly controlled immunoperoxidase for Helicobacter is negative for Helicobacter organisms. ([facility] 03/26/2020) . Special stain performed: Immunoperoxidase for Helicobacter on A1. . 02 Electronically signed: . Rafa Kendall MD, Pathologist NPI- [id number] . 01 Gross description: . The specimen is received in formalin, labeled "Mariah Mcghee, gastric biopsy, R/O H. pylori". Received are three segments of pale olvera soft tissue ranging in size from 0.2 to 0.3 cm in maximum dimensions. The specimen is submitted entirely in cassette A1. ([facility]; 03/25/2020) [facility] 03/25/2020 1818 Local . 02 Pathologist provided ICD-10: K29.50 . 02 CPT . 869917, [id number] Specimen Comment: A courtesy copy of this report has been sent to [phone] Specimen Comment: [id number] Specimen Comment: Report sent to / DR HERNANDEZ Performed at: 01 [facility] [address], [place], [place] [id number] MD Magno Colunga MD Phone: [phone] Performed at: 02 [facility] [address] [place], [place] [id number] MD Rafa Kendall MD Phone: [phone]
== END | disposition home or self-care (01) ==
LOC: SURG 08:09
PROVIDERS: ATTEND Internal Medicine Gastroenterology
DX: R13.10 Dysphagia, unspecified (principal); K29.50 Unspecified chronic gastritis without bleeding; K22.2 Esophageal obstruction; I10 Essential (primary) hypertension; M19.90 Unspecified osteoarthritis, unspecified site; F17.210 Nicotine dependence, cigarettes, uncomplicated; F32.9 Major depressive disorder, single episode, unspecified; Z90.49 Acquired absence of other specified parts of digestive tract; Z98.890 Other specified postprocedural states; Z79.899 Other long term (current) drug therapy; Z86.711 Personal history of pulmonary embolism; Z87.11 Personal history of peptic ulcer disease; Z88.6 Allergy status to analgesic agent; Z88.8 Allergy status to other drugs, medicaments and biological substances; Z90.710 Acquired absence of both cervix and uterus; Z91.041 Radiographic dye allergy status
CPT/HCPCS: 43239; 43450; 88305; 88342; J2704; J7120

== ENCOUNTER → 2020-08-11 | Outpatient (CLI) | payer MEDICARE, BC ==
[2020-03-25 11:28] VITALS: BP 109/78
[~2020-08-11] MED LIST changes: -IPRATRPIUM/ALBUTEROL 0.5/2.5MG 3 ML NEBU. NEB PRN; -IV RINGERS SOLUTION,LACTATED 1,000 ML IV SCH; -MIDAZOLAM HCL PF 2 MG/2 ML VIAL. IV ONE; -ONDANSETRON PF 4 MG/2 ML VIAL. IV PRN; -PROPOFOL 10,000 MCG/ML (20ML) VIAL IV ONE
--- NOTE | 2020-08-12 09:26 | RAD ---
PQRS Compliance Statement: One or more of the following individualized dose reduction techniques were utilized for this examinat ion: 1. Automated exposure control 2. Adjustment of the mA and/or kV according to patient size 3. Use of iterative reconstruction technique CT THORAX WO Clinical Indication: Reason: SHORTNESS OF BREATH, ACUTE BRONCHOSPASM Comparison: CT chest without contrast, June 22, 2017. TECHNIQUE: Helical CT imaging of the chest is performed without IV contrast. Findings: The thyroid is symmetric. There are subcentimeter mediastinal lymph nodes. There is no adenopathy. Li mited evaluation of the judith without IV contrast. The great vessels are normal caliber. Cardiac size is normal, no pericardial effusion. There is no pleural effusion. The central airways are patent. There is discoid atelectasis or linear scarring in the bilateral lung bases. Lungs are otherwise clear. Cholecystectomy. No acute bone abnormality. Cervical spine fusion hardware. There is exaggerated thoracic kyphosis. IMPRESSION: Discoid atelectasis or linear scarring in the bilateral lung bases. Electronically signed by: Fitz Rousseau MD (08/12/2020 9:23 AM) [id number]
== END ==
LOC: CT 10:20
PROVIDERS: ATTEND Family Medicine
DX: J98.01 Acute bronchospasm (principal); M40.294 Other kyphosis, thoracic region; M43.22 Fusion of spine, cervical region; Z90.49 Acquired absence of other specified parts of digestive tract
CPT/HCPCS: 71250

== ENCOUNTER → 2021-05-06 | Outpatient (CLI) | payer MEDICARE, BC ==
[2020-03-25 11:28] VITALS: BP 109/78
[~2021-05-06] MED LIST changes: +CYCL10TA19 PO; -LACT1CAP29 PO; +LACT1CAP37 PO
[2021-05-06 11:19] LABS: BASO # 0.1 x10^3/uL (0.0-0.2); BASO % 1 % (0-3); EOS # 0.2 x10^3/uL (0.0-0.7); EOS % 2 % (0-3); HEMATOCRIT 44.8 % (36.0-47.0); HEMOGLOBIN 14.5 g/dL (12.0-15.5); LYMPH # 2.2 x10^3/uL (1.0-4.8); LYMPH % 19 % (24-48); MEAN CORPUSCULAR HEMOGLOBIN 31 pg (25-35); MEAN CORPUSCULAR HGB CONC 32 g/dL (31-37); MEAN CORPUSCULAR VOLUME 95 fL (79-100); MONO # 0.7 x10^3/uL (0.0-1.1); MONO % 6 % (0-9); NEUT # 8.3 x10^3uL (1.8-7.7); NEUT % 72 % (31-73); PLATELET COUNT 333 x10^3/uL (140-400); RED BLOOD COUNT 4.72 x10^6/uL (3.50-5.40); RED CELL DISTRIBUTION WIDTH 13.2 % (11.5-14.5); WHITE BLOOD COUNT 11.6 x10^3/uL (4.0-11.0)
[2021-05-06 11:53] LABS: ALBUMIN 3.7 g/dL (3.4-5.0); CALCIUM 9.7 mg/dL (8.5-10.1); CREATININE 0.9 mg/dL (0.6-1.0); GFR 62.3; POTASSIUM 4.5 mmol/L (3.5-5.1); TOTAL BILIRUBIN 0.2 mg/dL (0.2-1.0); TOTAL PROTEIN 7.5 g/dL (6.4-8.2)
== END ==
LOC: LAB 10:05
PROVIDERS: ATTEND Nurse Practitioner Adult Health
DX: M94.0 Chondrocostal junction syndrome [Tietze] (principal); R07.9 Chest pain, unspecified
CPT/HCPCS: 36415; 80053; 82553; 84484; 85025; 85379

== ENCOUNTER → 2021-05-08 | Outpatient (CLI) | payer MEDICARE, BC ==
[2020-03-25 11:28] VITALS: BP 109/78
--- NOTE | 2021-05-08 14:39 | RAD ---
EXAM: Chest CT without intravenous contrast. HISTORY: Reflux disease. Cough. TECHNIQUE: Computed tomographic images of the chest were obtained without contrast. Multiplanar refor matting was performed. *One or more of the following individualized dose reduction techniques were utilized for this examina tion: 1. Automated exposure control. 2. Adjustment of the mA and/or kV according to patient size. 3. Use of iterative reconstruction technique. COMPARISON: 08/11/2020. FINDINGS: The heart is normal in size. The aorta is normal in caliber. There is no mediastinal or hil ar lymphadenopathy. There is fatty stranding within the midline chest wall anterior to the sternum, n ew compared to the prior study. There is slight overlying skin thickening extending to the left of mi dline to involve the medial left breast. The underlying sternum is unremarkable. There is no pneumothorax or pleural effusion. There is a 2 mm nodule within the posterior left lower lobe. There is stable linear atelectasis or scarring within the right lower lobe and bilateral wad lubricator ior dependent and basilar atelectasis. There is stable tiny clustered faint nodular opacities measuri ng up to 3 mm within the lateral right middle lobe, likely postinfectious or postinflammatory in etio logy. There is no acute or suspicious finding involving the upper abdomen. There is degenerative change inv olving the thoracic spine. There is cervical spinal fusion instrumentation. IMPRESSION: 1. Stable bilateral lower lobe atelectasis and possible superimposed pleural parenchymal scarring. 2. Stable 2 mm nodule within the left lower lobe, likely benign based on size. There are also stable tiny groundglass nodular opacities clustered within the lateral right middle lobe measuring up to 3 m m, likely postinfectious or postinflammatory in etiology. 3. Soft tissue stranding within the midline chest wall subcutaneous fat anterior to the sternum and o verlying skin thickening extending to the medial left breast. Correlate for possible cellulitis. If t here is a history of recent chest wall trauma, this may be due to a soft tissue contusion. No chest w all mass or fluid collection is seen and there is no underlying sternal lesion. Electronically signed by: Shahla Joseph MD (05/08/2021 2:36 PM) [id number]
== END ==
LOC: CT 11:26
PROVIDERS: ATTEND Nurse Practitioner Adult Health
DX: K21.9 Gastro-esophageal reflux disease without esophagitis (principal); R91.1 Solitary pulmonary nodule; J98.11 Atelectasis
CPT/HCPCS: 71250

== ENCOUNTER 2021-05-10 09:10 | Emergency (ER) | payer MEDICARE, BC ==
[~2021-05-10] VITALS: Ht 167.6 cm; Wt 64.2 kg
[~2021-05-10 09:10] MED LIST changes: -CYCL10TA19 PO
--- NOTE | 2021-05-10 10:23 | EKG ---
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
[2021-05-10] MEDS ORDERED: CYCLOBENZAPRINE 10 MG TABLET. PO ONE (10:30)
[2021-05-10] MEDS ORDERED: ASPIRIN 325 MG TABLET PO ONE (10:30)
--- NOTE | 2021-05-10 10:35 | PHYS DOC ---
Past History Past Medical History: Depression, Hypertension, Kidney Stones, UTI, Other (SANDIE BROWNING RING BARKER OPERATOR) Past Surgical History: Cholecystectomy, Hysterectomy, Tubal ligation, Other (SANDIE BROWNING APRN) Smoking: Cigarettes Alcohol Use: None Drug Use: None (SANDIE BROWNING APRN) Adult General Chief Complaint Chief Complaint: CHEST PAIN HPI HPI Patient is a 66-year-old female patient with history of depression, hypertension, high cholesterol, who presents to the ED today complaining of mild intermittent "pulling" left-sided chest pain, symptoms began a week ago after she bent down to pick a library book from the floor. Patient states the pain is worse on pushing on her left chest as well as certain movements or lifting heavy items. Patient denies anything specifically relieving the pain. She states she was seen by the PCP on Tuesday last week for the same pain, she states they did a chest x-ray, EKG and labs which were negative. She states they did a CT of her chest on last week but she does not have the results. She states she would like something to help with the pain. (SANDIE BROWNING RING BARKER OPERATOR) Review of Systems Review of Systems Constitutional: Denies fever or chills [] Eyes: Denies change in visual acuity, redness, or eye pain [] HENT: Denies nasal congestion or sore throat [] Respiratory: Denies cough or shortness of breath [] Cardiovascular: Reports left-sided chest pain GI: Denies abdominal pain, nausea, vomiting, bloody stools or diarrhea [] : Denies dysuria or hematuria [] Musculoskeletal: Denies back pain or joint pain [] Integument: Denies rash or skin lesions [] Neurologic: Denies headache, focal weakness or sensory changes [] All other systems were reviewed and found to be within normal limits, except as documented in this note. (SANDIE BROWNING RING BARKER OPERATOR) Current Medications Current Medications Current Medications Medications (Trade) Dose Ordered Sig/Emiliano Start Time Stop Time Status Last Admin Dose Admin Aspirin (Madina Aspirin) 325 mg 1X ONCE 05/10/21 10:30 05/10/21 10:31 Cyclobenzaprine HCl (Flexeril) 10 mg 1X ONCE 05/10/21 10:30 05/10/21 10:31 (SANDIE BROWNING RING BARKER OPERATOR) Allergies Allergies Allergies Coded Allergies Type Severity Reaction Last Updated Verified nitroglycerin Allergy Severe 08/17/15 Yes levofloxacin Allergy Intermediate 08/17/15 Yes I S O L A T I O N *CONTACT* Allergy Unknown 11/01/16 Yes Influenza Virus Vaccines Allergy Unknown 07/09/16 Yes codeine Allergy Unknown 03/19/20 Yes (SANDIE BROWNING Samuel RING BARKER OPERATOR) Physical Exam Physical Exam Constitutional: Well developed, well nourished, no acute distress, non-toxic appearance. [] HENT: Normocephalic, atraumatic, bilateral external ears normal, oropharynx mo ist, no oral exudates, nose normal. [] Eyes: PERRLA, EOMI, conjunctiva normal, no discharge. [] Neck: Normal range of motion, no tenderness, supple, no stridor. [] Cardiovascular:Heart rate regular rhythm, reproducible left-sided chest pain on palpation of the left mid chest. Lungs & Thorax: Bilateral breath sounds clear to auscultation [] Abdomen: Bowel sounds normal, soft, no tenderness, no masses, no pulsatile masses. [] Skin: Warm, dry, no erythema, no rash. [] Back: No tenderness, no CVA tenderness. [] Extremities: No tenderness, no cyanosis, no clubbing, ROM intact, no edema. [] Neurologic: Alert and oriented X 3, normal motor function, normal sensory function, no focal deficits noted. [] Psychologic: Affect normal, judgement normal, mood normal. [] (SANDIE BROWNING RING BARKER OPERATOR) EKG EKG [address] Reyes sinus rhythm heart rate 72 no STEMI (SANDIE BROWNING RING BARKER OPERATOR) Radiology/Procedures Radiology/Procedures [] (ILSAKARMENSANDIE Samuel RING BARKER OPERATOR) Heart Score C/O Chest Pain: Yes HEART Score for Chest Pain: HEART Score for Chest Pain Response (Comments) Value History Slighlty/Non-Suspicious 0 ECG Normal 0 Age > 65 2 Risk Factors 1 or 2 Risk Factors 1 Troponin < Normal Limit 0 Total 3 Risk Factors: Risk Factors: DM, Current or recent (<one month) smoker, HTN, HLP, family history of CAD, obesity. Risk Scores: Risk Factors: DM, Current or recent (<one month) smoker, HTN, HLP, family history of CAD, obesity. (SANDIE BROWNING APRN) Course & Med Decision Making Course & Med Decision Making Pertinent Labs and Imaging studies reviewed. (See chart for details) This is a 66-year-old female patient presenting to the ED today complaining of left-sided chest pain that began a week ago after she bent down to pick from the floor. Patient states she has been seen by the PCP on Tuesday last week and had negative chest x-ray and negative lab work as well as a negative EKG. She states she also had a CT of the chest done on last week. CT of the chest told she could have, contusion, inflammation to the region, cellulitis. EKG done in the ED is negative. She refused any imaging labs are negative for any acute findings including troponin. Dc to home, f/u with PCP next week. (SANDIE BROWNING APRN) Dragon Disclaimer Dragon Disclaimer This electronic medical record was generated, in whole or in part, using a voice recognition dictation system. (SANDIE BROWNING APRN) Attending Co-Sign The patient was seen and interviewed as well as examined at the bedside. The chart was reviewed. The case was discussed. Agree with the plan of care. (YONG REYES DO) Departure Departure: Impression: Primary Impression: Chest wall contusion Disposition: HOME / SELF CARE / HOMELESS Condition: STABLE Referrals: WAYNE WEAVER APRN (PCP) Follow-up next week Patient Instructions: Contusion, [id number] Additional Instructions: You were evaluated in the emergency room and noted to have chest contusion. Please follow-up with your primary care doctor next week. Take the prescribed medications as needed for pain Scripts Cyclobenzaprine Hcl (CYCLOBENZAPRINE HCL) 10 Mg Tablet 1 TAB PO TID, #30 TAB Prov: SANDIE BROWNING APRN 05/10/21 Problem Qualifiers Primary Impression: Chest wall contusion Encounter type: initial encounter Laterality: left Qualified Codes: S20.212A - Contusion of left front wall of thorax, initial encounter SANDIE BROWNING APRN May 10, 2021 10:35 YONG REYES DO May 12, 2021 13:05
[2021-05-10] MEDS ORDERED: LIDO:MAALOX 1:1 20 ML SINGLE DOSE. PO ONE (11:30)
[2021-05-10 13:15] LABS: BASO # 0.1 x10^3/uL (0.0-0.2); BASO % 1 % (0-3); EOS # 0.2 x10^3/uL (0.0-0.7); EOS % 2 % (0-3); HEMOGLOBIN 12.9 g/dL (12.0-15.5); LYMPH # 2.6 x10^3/uL (1.0-4.8); LYMPH % 35 % (24-48); MEAN CORPUSCULAR HEMOGLOBIN 31 pg (25-35); MEAN CORPUSCULAR HGB CONC 33 g/dL (31-37); MEAN CORPUSCULAR VOLUME 93 fL (79-100); MONO # 0.5 x10^3/uL (0.0-1.1); MONO % 7 % (0-9); NEUT # 4.1 x10^3uL (1.8-7.7); NEUT % 55 % (31-73); PLATELET COUNT 365 x10^3/uL (140-400); RED BLOOD COUNT 4.21 x10^6/uL (3.50-5.40); WHITE BLOOD COUNT 7.4 x10^3/uL (4.0-11.0)
[2021-05-10 13:34] LABS: ANION GAP 10 (6-14); BLOOD UREA NITROGEN 10 mg/dL (7-20); BUN/CREATININE RATIO 14 (6-20); CALCIUM 9.1 mg/dL (8.5-10.1); CARBON DIOXIDE 26 mmol/L (21-32); CHLORIDE 105 mmol/L (98-107); CREATININE 0.7 mg/dL (0.6-1.0); GFR 83.2; GLUCOSE 86 mg/dL (70-99); SODIUM 141 mmol/L (136-145)
[2021-05-10 13:42] LABS: ALBUMIN 3.2 g/dL (3.4-5.0); ALK PHOS 94 U/L (46-116); ALT (SGPT) 14 U/L (14-59); AST (SGOT) 15 U/L (15-37); MAGNESIUM 2.2 mg/dL (1.8-2.4); TOTAL BILIRUBIN 0.2 mg/dL (0.2-1.0); TOTAL PROTEIN 6.3 g/dL (6.4-8.2)
[2021-05-10 13:48] VITALS: BP 121/75
[2021-05-10] MEDS ORDERED: CYCL10TA19 PO (13:52)
== END 2021-05-10 14:12 | disposition home or self-care (01) ==
LOC: ER 09:10
DX: S20.212A Contusion of left front wall of thorax, initial encounter (principal); I10 Essential (primary) hypertension; E78.00 Pure hypercholesterolemia, unspecified; F32.9 Major depressive disorder, single episode, unspecified; F17.210 Nicotine dependence, cigarettes, uncomplicated; Z87.442 Personal history of urinary calculi; Z87.440 Personal history of urinary (tract) infections; Z90.49 Acquired absence of other specified parts of digestive tract; Z98.51 Tubal ligation status; Z90.710 Acquired absence of both cervix and uterus; Z88.1 Allergy status to other antibiotic agents; Z88.7 Allergy status to serum and vaccine; Z88.5 Allergy status to narcotic agent; Z88.8 Allergy status to other drugs, medicaments and biological substances; X50.9XXA Other and unspecified overexertion or strenuous movements or postures, initial encounter; Y93.89 Activity, other specified; Y92.89 Other specified places as the place of occurrence of the external cause; Y99.8 Other external cause status
CPT/HCPCS: 36415; 80053; 82553; 83735; 83880; 84443; 84484; 85025; 93005; 99285

== ENCOUNTER → 2021-10-05 | Outpatient (CLI) | payer MEDICARE, BC ==
[~2021-10-05] MED LIST changes: +CYCL10TA19 PO
[2021-10-05 12:07] LABS: BASO % 1 % (0-3); EOS # 0.2 x10^3/uL (0.0-0.7); EOS % 3 % (0-3); HEMATOCRIT 44.8 % (36.0-47.0); HEMOGLOBIN 14.8 g/dL (12.0-15.5); LYMPH # 2.4 x10^3/uL (1.0-4.8); LYMPH % 40 % (24-48); MEAN CORPUSCULAR HEMOGLOBIN 31 pg (25-35); MEAN CORPUSCULAR HGB CONC 33 g/dL (31-37); MEAN CORPUSCULAR VOLUME 94 fL (79-100); MONO # 0.4 x10^3/uL (0.0-1.1); MONO % 6 % (0-9); NEUT % 50 % (31-73); PLATELET COUNT 305 x10^3/uL (140-400); RED BLOOD COUNT 4.74 x10^6/uL (3.50-5.40); RED CELL DISTRIBUTION WIDTH 14.3 % (11.5-14.5)
[2021-10-05 12:25] LABS: ALBUMIN/GLOBULIN RATIO 1.4 (1.0-1.7); CALCIUM 9.2 mg/dL (8.5-10.1); CREATININE 0.6 mg/dL (0.6-1.0); GFR 99.4; POTASSIUM 4.7 mmol/L (3.5-5.1); TOTAL BILIRUBIN 0.3 mg/dL (0.2-1.0); TOTAL PROTEIN 6.9 g/dL (6.4-8.2)
== END ==
LOC: LAB 10:12
PROVIDERS: ATTEND Family Medicine
DX: M25.541 Pain in joints of right hand (principal); M25.542 Pain in joints of left hand; R07.89 Other chest pain
CPT/HCPCS: 80053; 82150; 82553; 83690; 84484; 85025

== ENCOUNTER → 2021-11-04 | Outpatient (CLI) | payer MEDICARE, BC ==
[~2021-11-04] MED LIST changes: -BUPR150T11 PO; +BUPR150T24 PO; -OMEP20TA8 PO; +OMEP20TA91 PO
[2021-11-04 10:53] LABS: BASO # 0.1 x10^3/uL (0.0-0.2); BASO % 1 % (0-3); EOS # 0.1 x10^3/uL (0.0-0.7); EOS % 1 % (0-3); HEMATOCRIT 43.1 % (36.0-47.0); HEMOGLOBIN 14.2 g/dL (12.0-15.5); LYMPH # 2.3 x10^3/uL (1.0-4.8); LYMPH % 25 % (24-48); MEAN CORPUSCULAR HEMOGLOBIN 31 pg (25-35); MEAN CORPUSCULAR HGB CONC 33 g/dL (31-37); MEAN CORPUSCULAR VOLUME 96 fL (79-100); MONO # 0.7 x10^3/uL (0.0-1.1); MONO % 7 % (0-9); NEUT # 5.9 x10^3uL (1.8-7.7); NEUT % 65 % (31-73); PLATELET COUNT 299 x10^3/uL (140-400); RED BLOOD COUNT 4.51 x10^6/uL (3.50-5.40); RED CELL DISTRIBUTION WIDTH 13.9 % (11.5-14.5)
[2021-11-04 11:08] LABS: ALBUMIN 3.5 g/dL (3.4-5.0); ALBUMIN/GLOBULIN RATIO 1.1 (1.0-1.7); CALCIUM 9.1 mg/dL (8.5-10.1); CREATININE 0.7 mg/dL (0.6-1.0); GFR 83.2; POTASSIUM 3.9 mmol/L (3.5-5.1); TOTAL BILIRUBIN 0.4 mg/dL (0.2-1.0); TOTAL PROTEIN 6.7 g/dL (6.4-8.2)
[2021-11-04 21:01] LABS: FREE T4 1.12 ng/dL (0.76-1.46); THYROID STIM HORMONE (TSH) 1.756 uIU/mL (0.358-3.740)
[2021-11-05 21:09] LABS: EBNA IGG 77.2 U/mL (0.0-17.9)
== END ==
LOC: LAB 09:55
PROVIDERS: ATTEND Nurse Practitioner Adult Health
DX: R53.81 Other malaise (principal); M79.10 Myalgia, unspecified site
CPT/HCPCS: 36415; 80053; 84439; 84443; 85025; 86038; 86644; 86645; 86664; 86665